=== PATIENT | male | born 2000 | race Caucasian/White ===

== ENCOUNTER 2024-03-04 12:23 | Emergency (ER) | payer SELFPAY ==
[2024-03-04 12:23] VITALS: BMI 20.1
[2024-03-04 12:26] VITALS: BP 107/73
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
== END 2024-03-04 15:14 | disposition home or self-care (01) ==
LOC: EMR 12:23
PROVIDERS: EMERGENCY PHYSICIAN Student in an Organized Health Care Education/Training Program
DX: S02.2XXA Fracture of nasal bones, initial encounter for closed fracture (principal); S00.33XA Contusion of nose, initial encounter; S00.03XA Contusion of scalp, initial encounter; S00.31XA Abrasion of nose, initial encounter; Y04.0XXA Assault by unarmed brawl or fight, initial encounter; F17.200 Nicotine dependence, unspecified, uncomplicated
CPT/HCPCS: 99283; 70160